=== PATIENT | female | born 2000 | race Caucasian/White ===

== ENCOUNTER 2021-08-30 15:54 | Emergency (ER) | payer OTHER ==
[2021-08-30] MEDS ORDERED: IBUPROFEN600 MG PO (18:36)
== END 2021-08-30 18:44 | disposition home or self-care (01) ==
LOC: EDBD 15:54 → ER1 15:54
DX: S10.91XA Abrasion of unspecified part of neck, initial encounter (principal); V49.40XA Driver injured in collision with unspecified motor vehicles in traffic accident, initial encounter; Y92.410 Unspecified street and highway as the place of occurrence of the external cause
CPT/HCPCS: 71045; 72170; 84703; 99284